=== PATIENT | female | born 1955 | race Caucasian/White ===

== ENCOUNTER → 2020-01-21 | Outpatient (CLI) | payer MEDICARE, OTHER, SELFPAY ==
[2020-01-21 09:12] LABS: Erythrocyte Sedimentation Rate 12 mm/hr (0-30)
[2020-01-21 09:17] LABS: CRP < 2.90 mg/L (0.0-3.0)
== END | disposition home or self-care (01) ==
LOC: LABSPEC 08:59
PROVIDERS: PCP Family Medicine; Referring Provider Family Medicine; Visit Provider Family Medicine
DX: R10.32 Left lower quadrant pain (principal)
CPT/HCPCS: 85652; 86140

== ENCOUNTER 2024-04-06 14:00 | Outpatient (RCR) | payer MEDICARE, OTHER, SELFPAY ==
--- NOTE | 2024-02-17 11:06 | HP.PTEVAL_ITS ---
Patient's Visit Information Visit Information Visit Information: ESHA BROWN is a 68 year old F referred to Physical Therapy by Dr. Danish Harris DPM with a diagnosis of POSTERIOR TIBIAL TENDONITIS. Date of Evaluation: 02/17/24 Physical Therapist: Rian Ayala, PT, Cert MDT, OCS Visit Plan Frequency: 2-3x /Week Duration: 4-6 Weeks Plan: PT INTERVENTIONS US/CP ,INTRINSIC STRENGTHENING ARCH ,STRENGTHENING ANKLE STABILIZERS ,STRETCHING CALF AND MANUAL THERAPY STM Subjective Subjective: This 68 y/o female presents to physical therapy for left tibial tendonitis for 6 month. Patient condition needs TKA right alters gait pattern . Patient pain located medal arch and dorsal foot. Seen DR provided orthotics and had x-rays -. Aggravating factors extended walking extended standing worse especially hard floors. Alleviating factors massage ,rest. Denies paresthesia/tingling -. Pain affects sleeping. Patient was provided stretches. Patient condition affects QOL and function. Patient goals to decrease pain. 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[employer] [facility] Pain Right Foot: Pain Intensity (Out of 10): 4 Pain Intensity Range: 10 Objective Objective: POSTURE: ( frontal plan mechanics) pes cavus PALAPTION: tender dorsal forefoot , medial arch EDEMA : mild effusion ankle left/right GAIT: ambulates with reciprocal pattern NEURO: denies paresthesia/tingling AROM: dorsiflexion 5 degrees ,plantar flexion 65 degrees ,eversion 10 degrees ,inversion 40 degrees MMT: ankle dorsiflexion 5/5 ,plantar flexion 4/5 ,posterior tibialis 4/5 mild pain,peronus 4/5 mild pain from stretching Balance/Special Test Scores Lower Extremity Functional Score: 36 Goals Goal 1:: Patient to be I with HEP for ankle Goal Time Frame: 4-6 Weeks Goal 2:: Patient to demonstrate 50% improvement with less pain and improved function Goal Time Frame: 4-6 Weeks Goal 3:: Patient to improve LFES score by 5 points to improve function and QOL Goal Time Frame: 4-6 Weeks Goal 4:: Patient to improve ability to walk and stand extended time/distance with min to no pain to improve work demands Goal Time Frame: 4-6 Weeks Rehabilitation Potential Physical Therapy Diagnosis: This patient has forefoot pain PTT with pain with palpation ,weakness posterior tibialis with pain ,impairs walking and standing thus benefit from skilled PT Rehabilitation Potential: Good Anticipated Interventions Patient/Client Instruction: Educate patient on: Condition and Plan of Care For the Purpose of:: To decrease pain, To increase ROM, To improve muscle performance and motor function, To improve ability to perform ADL's, To increase tolerance to activity/condition/position, To improve ability of physical actions for home/community/work/leisure, To improve health of tissue, To decrease soft tissue restriction, To increase flexibility/ROM and To improve balance Therapeutic Exercise to Include: Strength training, Endurance training, Balance training, Flexibilty training and Active ROM Comment: ANKLE /INTRINSICS For the Purpose of:: To decrease pain, To increase ROM, To improve muscle performance and motor function, To increase tolerance to activity/condition/position, To improve ability of physical actions for home/community/work/leisure, To improve health of tissue, To decrease soft tissue restriction, To increase flexibility/ROM, To improve endurance and To improve balance Manual Therapy Techniques to Include: Mobilization and Soft tissue mobilization For the Purpose of:: To decrease pain, To increase ROM, To improve nutrient delivery to tissue, To increase oxygenation perfusion, To improve health of tissue and To decrease soft tissue restriction Cryotherapy (ice pack, ice massage): Yes Thermo therapy (hot pack): Yes Ultrasound (thermal/non thermal): Yes For the Purpose of:: To decrease pain, To increase ROM, To improve health of tissue, To decrease soft tissue restriction and To increase flexibility/ROM Text: Thank you for the opportunity to evaluate your patient. For Medicare and Medicare HMO plans, please review the plan of care and approve it. It will need to be FAXED BACK to us at [phone] for Medicare purposes. For Medicare only, by signing this I certify the plan of care. Please let me know if there are questions or concerns regarding this plan of care. Physician Signat ure: Date:
--- NOTE | 2024-03-11 13:10 | HP.PTREVAL ---
Re-Evaluation Intro: Dr. Danish Harris, DPM, It has been my pleasure to treat ESHA BROWN over the last 7 visits for POSTERIOR TIBIAL TENDONITIS (LEFT). Please see the progress note below for an update on the physical therapy plan of care! Subjective Subjective: PT is helping some ,not limping as bad Objective Objective/Function: Patient has been progressing well with skilled PT thus will benefit from cont with PT with goals are appropriate and updated. POSTURE: ( frontal plan mechanics) pes cavus PALAPTION: tender dorsal forefoot , medial arch EDEMA : mild effusion ankle left/right GAIT: ambulates with reciprocal pattern NEURO: denies paresthesia/tingling AROM: dorsiflexion 5 degrees ,plantar flexion 65 degrees ,eversion 10 degrees ,inversion 40 degrees MMT: ankle dorsiflexion 5/5 ,plantar flexion 4/5 ,posterior tibialis 4/5 mild pain,peronus 4/5 mild pain from stretching Plan Plan Plan: PT INTERVENTIONS US/CP ,INTRINSIC STRENGTHENING ARCH ,STRENGTHENING ANKLE STABILIZERS ,STRETCHING CALF AND MANUAL THERAPY STM LEFT SIDE Balance/Gait/Functional tests Balance/Special Test Scores Lower Extremity Functional Score: 47 Goals Goals Goal 1:: Patient to be I with HEP for ankle Goal Time Frame: 4-6 Weeks Goal 2:: Patient to demonstrate 70% improvement with less pain and improved function( new goal) Goal Time Frame: 4-6 Weeks Goal 3:: Patient to improve LFES score by 5 points to improve function and QOL( new goal) Goal Time Frame: 4-6 Weeks Goal 4:: Patient to improve ability to walk and stand extended time/distance with min to no pain to improve work demands Goal Time Frame: 4-6 Weeks Anticipated Interventions Anticipated Interventions Patient/Client Instruction: Educate patient on: Condition and Plan of Care For the Purpose of:: To decrease pain, To increase ROM, To improve muscle performance and motor function, To improve ability to perform ADL's, To increase tolerance to activity/condition/position, To improve ability of physical actions for home/community/work/leisure, To improve health of tissue, To decrease soft tissue restriction, To increase flexibility/ROM and To improve balance Therapeutic Exercise to Include: Strength training, Endurance training, Balance training, Flexibilty training and Active ROM Comment: ANKLE /INTRINSICS For the Purpose of:: To decrease pain, To increase ROM, To improve muscle performance and motor function, To increase tolerance to activity/condition/position, To improve ability of physical actions for home/community/work/leisure, To improve health of tissue, To decrease soft tissue restriction, To increase flexibility/ROM, To improve endurance and To improve balance Manual Therapy Techniques to Include: Mobilization and Soft tissue mobilization For the Purpose of:: To decrease pain, To increase ROM, To improve nutrient delivery to tissue, To increase oxygenation perfusion, To improve health of tissue and To decrease soft tissue restriction Cryotherapy (ice pack, ice massage): Yes Thermo therapy (hot pack): Yes Ultrasound (thermal/non thermal): Yes For the Purpose of:: To decrease pain, To increase ROM, To improve health of tissue, To decrease soft tissue restriction and To increase flexibility/ROM Re-Evaluation Ending Re-evaluation ending: Please do not hesitate to contact me at [phone] by phone or if you have questions or concerns regarding this new plan of care! Sincerely, Rian Ayala, PT, Cert MDT, OCS
--- NOTE | 2024-04-06 14:32 | HP.PTDCSUM ---
Discharge Summary D/C summary: It has been my pleasure to treat ESHA BROWN referred by Dr. Danish Harris, DPM, with the diagnosis of POSTERIOR TIBIAL TENDONITIS (LEFT) for a total of 13 visit(s). Discharge Date: Please see the following information for a summary of their discharge status. Subjective Subjective: Seen Dr olson Pain was worse last night Most signficant progress is with marysol;santa Pain Right Foot: Pain Intensity (Out of 10): 2 Overall Improvement % Improvement: 90 Objective Objective/Function: POSTURE: ( frontal plan mechanics) pes cavus PALAPTION: tender dorsal forefoot , medial arch EDEMA : mild effusion ankle left/right GAIT: ambulates with reciprocal pattern NEURO: denies paresthesia/tingling AROM: dorsiflexion 5 degrees ,plantar flexion 65 degrees ,eversion 10 degrees ,inversion 40 degrees MMT: ankle dorsiflexion 5/5 ,plantar flexion 4/5 ,posterior tibialis 4/5 mild pain,peronus 4/5 Goals Goal 1:: Patient to be I with HEP for ankle Goal Progress: Goal Met Goal 2:: Patient to demonstrate 70% improvement with less pain and improved function( new goal) Goal Progress: Goal Met Goal 3:: Patient to improve LFES score by 5 points to improve function and QOL( new goal) Goal Progress: Goal Met Goal 4:: Patient to improve ability to walk and stand extended time/distance with min to no pain to improve work demands Goal Progress: Goal Met Plan Plan: D/C D/C Information d/c sentence: If there are questions or concerns regarding this patient's physical therapy, please feel free to call me at [phone]. Thank you for the referral of this patient. Sincerely, Rian Ayala, PT, Cert MDT, OCS Balance/Gait/Functional tests Balance/Special Test Scores Lower Extremity Functional Score: 64 Improvement % Improvement: 90
== END 2024-04-06 19:00 | disposition home or self-care (01) ==
LOC: PT 14:00
PROVIDERS: PCP Family Medicine; Referring Provider Student in an Organized Health Care Education/Training Program; Visit Provider Student in an Organized Health Care Education/Training Program
DX: M76.822 Posterior tibial tendinitis, left leg (principal)
CPT/HCPCS: 97035; 97110; 97140; 97162; 97530